=== PATIENT | female | born 1985 | race American Indian/Alaskan Native ===

== ENCOUNTER 2020-12-22 09:35 | Emergency (ER) | payer SELFPAY | END 2020-12-23 04:31 | disposition left against medical advice (07) | LOC: ED 09:35 | DX: I10 Essential (primary) hypertension (principal); Z53.21 Procedure and treatment not carried out due to patient leaving prior to being seen by health care provider ==

== ENCOUNTER 2021-03-14 13:54 | Emergency (ER) | payer SELFPAY ==
[2021-03-14 13:57] VITALS: BP 133/82
[2021-03-14] MEDS ORDERED: IBUPROFEN 800 MG TAB PO STA (14:22)
[2021-03-14] MEDS ORDERED: ACETAMINOPHEN 500 MG TAB PO STA (14:22)
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
[2021-03-14] MEDS: TETANUS,DIPH,PERTUSS(ACELL) VACCINE 0.5 ML SYRINGE IM ONE ×2 (14:36→14:39)
--- NOTE | 2021-03-14 15:08 | XRay Report ---
Right knee 3 views INDICATION: Right knee pain IMPRESSION: No fracture or subluxation of the right knee. Tiny knee effusion. Signer Name: César Kenny MD Signed: 03/14/2021 3:04 PM Workstation Name: [id number]
--- NOTE | 2021-03-14 15:09 | XRay Report ---
Left elbow 3 views INDICATION: Left elbow pain following injury IMPRESSION: No fracture or subluxation is identified. Signer Name: César Kenny MD Signed: 03/14/2021 3:04 PM Workstation Name: [id number]
== END 2021-03-14 16:04 | disposition home or self-care (01) ==
LOC: ED 13:54
DX: M25.461 Effusion, right knee (principal); M25.521 Pain in right elbow; M25.561 Pain in right knee
CPT/HCPCS: 90715; 99283